=== PATIENT | male | born 1985 | race Two or more races ===

== ENCOUNTER 2021-11-06 14:03 | Emergency (ER) | payer SELFPAY ==
[2021-11-06] MEDS ORDERED: Ketorolac 30 MG/ML SDV IM STA (14:49)
[2021-11-06] MEDS ORDERED: Cyclobenzaprine 10 MG Tab PO ONE (14:50)
== END 2021-11-06 15:21 | disposition home or self-care (01) ==
LOC: MW.ED 14:03
DX: M54.41 Lumbago with sciatica, right side (principal); Z79.899 Other long term (current) drug therapy
CPT/HCPCS: 96372; 99283; A9270; J1885